=== PATIENT | male | born 1995 | race Caucasian/White ===

== ENCOUNTER 2019-01-29 09:31 | Outpatient (CLI) | payer BC ==
[~2019-01-29] VITALS: Ht 180.3 cm; Wt 85.5 kg
[~2019-01-29 09:31] MED LIST: HYDR-569 PO; MOT200T PO
[2019-01-29] MEDS ORDERED: ESOM20CA PO (10:06)
[2019-01-29 11:00] VITALS: BP 122/62
[2019-01-29] MEDS ORDERED: fentaNYL/PF 50MCG/1 ML 2ML syringe ONE (11:13)
[2019-01-29] MEDS ORDERED: MIDAZolam 5mg/5ml vial ONE (11:13)
[2019-01-29] MEDS ORDERED: LIDOcaine Viscous 15ml cup ONE ×2 (11:13→11:20)
[2019-01-29 12:19] VITALS: BP 133/77
== END 2019-01-29 15:31 | disposition home or self-care (01) ==
LOC: GI LAB 09:31 → ED HOLD 15:23 → GI LAB 15:31
PROVIDERS: ATTEND Internal Medicine Gastroenterology
DX: K21.0 Gastro-esophageal reflux disease with esophagitis (principal); K22.8 Other specified diseases of esophagus; K44.9 Diaphragmatic hernia without obstruction or gangrene; K29.50 Unspecified chronic gastritis without bleeding; K64.8 Other hemorrhoids
CPT/HCPCS: 43239; 45330; 93005; 99152; J2250; J3010; J7040; A4620; G0378